=== PATIENT | female | born 1970 | race Two or more races ===

== ENCOUNTER 2024-01-14 23:29 | Emergency (ER) | payer OTHER ==
[~2024-01-14] VITALS: Ht 142.2 cm; Wt 82.7 kg
[2024-01-15 00:53] VITALS: PULSE 67; RESP 14; TEMP 98.5; O2SAT 99
[2024-01-15 01:03] LABS: Basophils # (auto) 0 10 ^3/uL (0-0.2); Basophils % (auto) 0.2 % (0.0-2.0); Eosinophils # (auto) 0.1 10 ^3/uL (0-0.8); Eosinophils % (auto) 0.7 % (0.0-7.0); Hematocrit 39.6 % (36.0-46.0); Hemoglobin 13.9 g/dL (12.2-16.2); Lymphocytes # (auto) 1.7 10 ^3/uL (0.4-5.4); Lymphocytes % (auto) 22.5 % (10.0-50.0); Mean Corpuscular Hemoglobin 32.2 pg (28.0-32.0); Mean Corpuscular Volume 92.1 fL (80.0-100.0); Monocytes # (auto) 0.4 10 ^3/uL (0-1.3); Monocytes % (auto) 5.1 % (0.0-12.0); Neutrophils # (auto) 5.4 10 ^3/uL (1.6-8.6); Neutrophils % (auto) 71.5 % (37.0-80.0); Platelet Count (auto) 196 10^3/uL (140-450); Red Blood Cells 4.31 10^6/uL (4.0-5.20); Red Cell Distribution Width 12.4 % (11.8-14.3); White Blood Cell 7.5 10^3/uL (4.4-10.8)
[2024-01-15 01:18] LABS: INR 0.99 (0.9-1.15); Partial Thromboplastin Time 25.6 SEC (24.5-34.5); Prothrombin Time 10.5 sec (9.3-11.8)
[2024-01-15] MEDS: IOHEXOL 350 MG/ML 100ML IJ ONE (01:19)
[2024-01-15 01:34] LABS: Alanine Aminotransferase 27 U/L (7-40); Alkaline Phosphatase 116 U/L (46-116); Anion Gap 11 (5-15); Aspartate Aminotransferase 16 U/L (13-40); Carbon Dioxide 23 mmol/L (20-30); Chloride 105 mmol/L (98-107); Glucose 128 mg/dL (74-106); Magnesium 2.2 mg/dL (1.6-2.6); Potassium 3.2 mmol/L (3.5-5.1); Sodium 139 mmol/L (136-145)
[2024-01-15 01:35] LABS: Albumin 4.8 g/dL (3.2-4.8); BUN/Creatinine Ratio 16.7 (10.0-20.0); Bilirubin, Total 0.5 mg/dL (0.2-1.0); Blood Urea Nitrogen 11 mg/dL (9-23); Total Protein 7.8 g/dL (5.7-8.2)
[2024-01-15 04:53] VITALS: BP 135/64; PULSE 57; RESP 15; O2SAT 97
== END 2024-01-15 05:55 | disposition home or self-care (01) ==
LOC: ER 23:29
DX: R51.9 Headache, unspecified (principal); R47.01 Aphasia; Z79.899 Other long term (current) drug therapy
CPT/HCPCS: 36415; 70450; 70496; 71045; 80053; 82962; 83735; 83880; 84484; 85025; 85610; 85730; 93005; 99285; Q9967